=== PATIENT | female | born 1940 | race Caucasian/White ===

== ENCOUNTER → 2017-09-20 | Outpatient (CLI) | payer MEDICARE ==
--- NOTE | 2017-09-20 15:19 | MM ---
Reason for exam: screening (asymptomatic). Last mammogram was performed 2 years and 5 months ago. History: Patient is postmenopausal. Benign core biopsy of the left breast. Took estrogen for 8 years beginning at age 52. Took progesterone for 8 years beginning at age 52. Physical Findings: A clinical breast exam by your physician is recommended on an annual basis and results should be correlated with mammographic findings. MG Screening Mammo w CAD Bilateral CC and MLO view(s) were taken. Prior study comparison: May 05, 2015, bilateral MG screening mammo w CAD. April 01, 2014, bilateral MG screening mammo w CAD. The breast tissue is heterogeneously dense. This may lower the sensitivity of mammography. There is no discrete abnormality. No significant changes when compared with prior studies. ASSESSMENT: Negative, BI-RAD 1 RECOMMENDATION: Routine screening mammogram of both breasts in 1 year.
== END | disposition home or self-care (01) ==
LOC: RADMAMWWP 09:19
PROVIDERS: ATTEND Internal Medicine
DX: Z12.31 Encounter for screening mammogram for malignant neoplasm of breast (principal)
CPT/HCPCS: 77067

== ENCOUNTER → 2020-04-06 | Outpatient (CLI) | payer MEDICARE ==
--- NOTE | 2020-04-06 12:02 | MM ---
Reason for exam: clinical finding. Last mammogram was performed 2 years and 6 months ago. History: Patient is postmenopausal. Benign core biopsy of the left breast. Took estrogen for 8 years beginning at age 52. Took progesterone for 8 years beginning at age 52. Indicated problem(s): non-bloody discharge in both breasts. Physical Findings: Nurse did not find any significant physical abnormalities on exam. MG 3D Diag Mammo W/Cad ROMA Bilateral CC and MLO view(s) were taken. Prior study comparison: September 20, 2017, bilateral MG screening mammo w CAD. May 05, 2015, bilateral MG screening mammo w CAD. The breast tissue is heterogeneously dense. This may lower the sensitivity of mammography. There is chronic nodularity bilaterally. There is no dominant lesion. These results were verbally communicated with the patient and result sheet given to the patient on 04/06/20. ASSESSMENT: Benign, BI-RAD 2 RECOMMENDATION: Routine screening mammogram of both breasts in 1 year. Manage on a clinical basis with regard to pain bilaterally, bilateral discharge.
== END | disposition home or self-care (01) ==
LOC: RADMAMWWP 10:55
PROVIDERS: ATTEND Internal Medicine
DX: N64.52 Nipple discharge (principal); R92.8 Other abnormal and inconclusive findings on diagnostic imaging of breast
CPT/HCPCS: 77066; G0279; 77062

== ENCOUNTER → 2021-08-17 | Outpatient (CLI) | payer MEDICARE ==
--- NOTE | 2021-08-18 11:29 | MM ---
Reason for exam: screening (asymptomatic). Last mammogram was performed 1 year and 4 months ago. History: Patient is postmenopausal and history of other cancer. Benign core biopsy of the left breast. Took estrogen for 8 years beginning at age 52. Took progesterone for 8 years beginning at age 52. Physical Findings: A clinical breast exam by your physician is recommended on an annual basis and results should be correlated with mammographic findings. MG 3D Screening Mammo W/Cad Bilateral CC and MLO view(s) were taken. Prior study comparison: April 06, 2020, bilateral MG 3d diag mammo w/cad ROMA. September 20, 2017, bilateral MG screening mammo w CAD. The breast tissue is heterogeneously dense. This may lower the sensitivity of mammography. Stable benign calcifications. There is no discrete abnormality. ASSESSMENT: Benign, BI-RAD 2 RECOMMENDATION: Routine screening mammogram of both breasts in 1 year.
== END | disposition home or self-care (01) ==
LOC: RADMAMWWP 14:38
PROVIDERS: ATTEND Internal Medicine
DX: Z12.31 Encounter for screening mammogram for malignant neoplasm of breast (principal); Z78.0 Asymptomatic menopausal state
CPT/HCPCS: 77063; 77067

== ENCOUNTER 2024-02-01 09:37 | Emergency (ER) | payer MEDICARE ==
[2024-02-01 09:56] VITALS: RESP 18; TEMP 97.6
--- NOTE | 2024-02-01 10:07 | ED ---
General Adult HPI - General Source: patient, RN notes reviewed Mode of arrival: ambulatory Limitations: no limitations <Carlos Grajeda - Last Filed: 02/01/24 09:55> <Barrie Diaz - Last Filed: 02/01/24 14:25> - General Stated complaint: Vomiting Time Seen by Provider: 02/01/24 10:00 - History of Present Illness Initial comments: Quick note 83-year-old female presents emergency department chief complaint dizziness. Patient states she has had a history of vertigo but this is much worse she has had this for last few days she states she is very nauseated dizziness is worse with movement. No focal weakness. (Carlos Grajeda) This is a 83-year-old female who presents to the emergency department with a complaint of dizziness. Patient states that started Monday has been ongoing since. Patient states she has had a history of this before many years ago. Patient states any movement of the head makes it worse. Patient states she is also very nauseous and has vomited. Patient denies any headache patient denies any numbness or weakness. Patient denies any chest pain difficulty breathing shortness of breath. Patient denies abdominal pain. Patient always has diarrhea she states. Patient denies any back pain. (Barrie Diaz) - Related Data Previous Rx's Medication Instructions Recorded Meclizine [Antivert] 25 mg PO TID #20 tab 02/01/24 Allergies Allergy/AdvReac Type Severity Reaction Status Date / Time aspirin Allergy Unknown Verified 02/01/24 09:51 codeine Allergy Unknown Verified 02/01/24 09:51 ketamine Allergy Unknown Verified 02/01/24 09:51 pentazocine [From [facility]] Allergy Unknown Verified 02/01/24 09:51 Review of Systems ROS Other: All systems not noted in ROS Statement are negative. <Carlos Grajeda - Last Filed: 02/01/24 09:55> ROS Other: All systems not noted in ROS Statement are negative. <Barrie Diaz - Last Filed: 02/01/24 14:25> ROS Statement: Those systems with pertinent positive or pertinent negative responses have been documented in the HPI. General Exam <Carlos Grajeda - Last Filed: 02/01/24 09:55> <Barrie Diaz - Last Filed: 02/01/24 14:25> - General Exam Comments Initial Comments: Visual Physical Exam Vital signs reviewed General: Well-appearing, nontoxic, no acute distress. Head: Normocephalic, atraumatic Eyes: PERRLA, EOMI ENT: Airway patent Chest: Nonlabored breathing Skin: No visual rash, normal skin tone Neuro: Alert and oriented 3 Musculoskeletal: No gross abnormalities (Carlos Grajeda) GENERAL: Patient is well-developed and well-nourished. Patient is nontoxic and well- hydrated and is in mild distress. ENT: Neck is soft and supple. No significant lymphadenopathy is noted. Oropharynx is clear. Moist mucous membranes. Neck has full range of motion without eliciting any pain. EYES: The sclera were anicteric and conjunctiva were pink and moist. Extraocular movements were intact and pupils were equal round and reactive to light. Eyelids were unremarkable. PULMONARY: Unlabored respirations. Good breath sounds bilaterally. No audible rales rhonchi or wheezing was noted. CARDIOVASCULAR: There is a regular rate and rhythm without any murmurs gallops or rubs. ABDOMEN: Soft and nontender with normal bowel sounds. SKIN: Skin is clear with no lesions or rashes and otherwise unremarkable. NEUROLOGIC: Patient is alert and oriented x3. Cranial nerves II through XII are grossly intact. Motor and sensory are also intact. Normal speech, volume and content. Symmetrical smile. Finger-nose testing is normal bilaterally MUSCULOSKELETAL: Normal extremities with adequate strength and full range of motion. No lower extremity swelling or edema. No calf tenderness. LYMPHATICS: No significant lymphadenopathy is noted PSYCHIATRIC: Normal psychiatric evaluation. (Barrie Diaz) Course Vital Signs 02/01/24 02/01/24 09:51 13:00 Temperature 97.6 F Pulse Rate 67 60 Respiratory 18 18 Rate Blood Pressure 140/79 135/68 O2 Sat by Pulse 97 96 Oximetry Medical Decision Making <Carlos Grajeda - Last Filed: 02/01/24 09:55> - Lab Data Result diagrams: 02/01/24 10:54 02/01/24 10:54 <Barrie Diaz - Last Filed: 02/01/24 14:25> - Medical Decision Making I completed the quick note portion of this chart signed Carlos Grajeda PA-C (Carlos Grajeda) EKG is interpreted by myself but EKG shows a sinus rhythm at 62 bpm HI 179 QRS is 108 QT interval is 435 QTc is 441 patient's EKG shows no ST segment elevation or depression. Was pt. sent in by a medical professional or institution (STEPHANIE Rizvi, ASSISTANT COUNSEL, urgent care, hospital, or fpc...) When possible be specific @ -No Did you speak to anyone other than the patient for history (EMS, parent, family, police, friend...)? What history was obtained from this source @ -No Did you review nursing and triage notes (agree or disagree)? Why? @ -I reviewed and agree with nursing and triage notes Were old charts reviewed (outside hosp., previous admission, EMS record, old EKG, old radiological studies, urgent care reports/EKG's, fpc records)? Report findings @ -No old charts were reviewed Differential Diagnosis? @ -Differential Dizziness: Benign paroxysmal positional Vertigo, Meniere's disease, otitis media, acoustic neuroma, vertebrobasilar insufficiency, cerebellar stroke, encephalitis, hypovolemic, arrhythmia, coronary artery syndrome, anemia, this is not meant to be an all-inclusive list EKG interpreted by me (3pts min.). @ -As above X-rays interpreted by me (1pt min.). @ -Chest x-ray shows no acute traumatic CT interpreted by me (1pt min.). @ -CT of the brain shows no acute normality U/S interpreted by me (1pt. min.). @ -None done What testing was considered but not performed or refused? (CT, X-rays, U/S, labs)? Why? @ -None What meds were considered but not given or refused? Why? @ -None Did you discuss the management of the patient with other professionals (professionals i.e. STEPHANIE Rizvi, ASSISTANT COUNSEL, lab, RT, psych nurse, psychosocial rehabilitation counselor, logistics manager, teacher, supervisor dog license officer, upper caser)? Give summary @ -No Was smoking cessation discussed for >3mins.? @ -No Was critical care preformed (if so, how long)? @ -No Were there social determinants of health that impacted care today? How? (Homelessness, low income, unemployed, alcoholism, drug addiction, transpo rtation, low edu. Level, literacy, decrease access to med. care, nursing home, rehab)? @ -No Was there de-escalation of care discussed even if they declined (Discuss DNR or withdrawal of care, Hospice)? DNR status @ -No What co-morbidities impacted this encounter? (DM, HTN, Smoking, COPD, CAD, Cancer, CVA, ARF, Chemo, Hep., AIDS, mental health diagnosis, sleep apnea, morbid obesity)? @ -None Was patient admitted / discharged? Hospital course, mention meds given and route, prescriptions, significant lab abnormalities, going to OR and other pertinent info. @ -Patient was given Antivert Valium and Reglan in the emergency department also given a bolus of fluids and was feeling better and able to ambulate without falling over or vomiting. Patient does want to be discharged home Undiagnosed new problem with uncertain prognosis? @ -No Drug Therapy requiring intensive monitoring for toxicity (Heparin, Nitro, Insulin, Cardizem)? @ -No Were any procedures done? @ -No Diagnosis/symptom? @ -Vertigo Acute, or Chronic, or Acute on Chronic? @ -Acute Uncomplicated (without systemic symptoms) or Complicated (systemic symptoms)? @ -Complicated Side effects of treatment? @ -No Exacerbation, Progression, or Severe Exacerbation? @ -No Poses a threat to life or bodily function? How? (Chest pain, USA, AR, pneumonia, PE, COPD, DKA, ARF, appy, cholecystitis, CVA, Diverticulitis, Homicidal, Suicidal, threat to staff... and all critical care pts) @ -No (Barrie Diaz) - Lab Data Lab Results 02/01/24 02/01/24 02/01/24 Range/Units 10:54 10:54 10:54 WBC 6.7 (3.8-10.6) k/uL RBC 4.27 (3.80-5.40) m/uL Hgb 15.6 (11.4-16.0) gm/dL Hct 44.8 (34.0-46.0) % MCV 105.0 H (80.0-100.0) fL MCH 36.5 H (25.0-35.0) pg MCHC 34.8 (31.0-37.0) g/dL RDW 14.1 (11.5-15.5) % Plt Count 210 (150-450) k/uL MPV 8.2 Neutrophils % 71 % Lymphocytes % 23 % Monocytes % 4 % Eosinophils % 1 % Basophils % 1 % Neutrophils # 4.7 (1.3-7.7) k/uL Lymphocytes # 1.5 (1.0-4.8) k/uL Monocytes # 0.2 (0-1.0) k/uL Eosinophils # 0.1 (0-0.7) k/uL Basophils # 0.1 (0-0.2) k/uL Macrocytosis Moderate PT 10.7 (10.0-12.5) sec INR 1.0 (<1.2) APTT 23.2 (22.0-30.0) sec Sodium 140 (137-145) mmol/L Potassium 3.9 (3.5-5.1) mmol/L Chloride 109 H (98-107) mmol/L Carbon Dioxide 20 L (22-30) mmol/L Anion Gap 11 mmol/L BUN 16 (7-17) mg/dL Creatinine 0.60 (0.52-1.04) mg/dL Est GFR (CKD-EPI)AfAm >90 (>60 ml/min/1.73 sqM) Est GFR (CKD-EPI)NonAf 85 (>60 ml/min/1.73 sqM) Glucose 168 H (74-99) mg/dL Calcium 9.9 (8.4-10.2) mg/dL Magnesium 2.0 (1.6-2.3) mg/dL Total Bilirubin 0.9 (0.2-1.3) mg/dL AST 62 H (14-36) U/L ALT 57 H (4-34) U/L Alkaline Phosphatase 56 (38-126) U/L Troponin I (0.000-0.034) ng/mL Total Protein 6.9 (6.3-8.2) g/dL Albumin 4.7 (3.5-5.0) g/dL 02/01/24 Range/Units 10:54 WBC (3.8-10.6) k/uL RBC (3.80-5.40) m/uL Hgb (11.4-16.0) gm/dL Hct (34.0-46.0) % MCV (80.0-100.0) fL MCH (25.0-35.0) pg MCHC (31.0-37.0) g/dL RDW (11.5-15.5) % Plt Count (150-450) k/uL MPV Neutrophils % % Lymphocytes % % Monocytes % % Eosinophils % % Basophils % % Neutrophils # (1.3-7.7) k/uL Lymphocytes # (1.0-4.8) k/uL Monocytes # (0-1.0) k/uL Eosinophils # (0-0.7) k/uL Basophils # (0-0.2) k/uL Macrocytosis PT (10.0-12.5) sec INR (<1.2) APTT (22.0-30.0) sec Sodium (137-145) mmol/L Potassium (3.5-5.1) mmol/L Chloride (98-107) mmol/L Carbon Dioxide (22-30) mmol/L Anion Gap mmol/L BUN (7-17) mg/dL Creatinine (0.52-1.04) mg/dL Est GFR (CKD-EPI)AfAm (>60 ml/min/1.73 sqM) Est GFR (CKD-EPI)NonAf (>60 ml/min/1.73 sqM) Glucose (74-99) mg/dL Calcium (8.4-10.2) mg/dL Magnesium (1.6-2.3) mg/dL Total Bilirubin (0.2-1.3) mg/dL AST (14-36) U/L ALT (4-34) U/L Alkaline Phosphatase (38-126) U/L Troponin I <0.012 (0.000-0.034) ng/mL Total Protein (6.3-8.2) g/dL Albumin (3.5-5.0) g/dL Disposition <Carlos Grajeda - Last Filed: 02/01/24 09:55> Is patient prescribed a controlled substance at d/c from ED?: No Time of Disposition: 14:24 <Barrie Diaz - Last Filed: 02/01/24 14:25> Clinical Impression: Vertigo Disposition: HOME SELF-CARE Condition: Good Instructions (If sedation given, give patient instructions): Vertigo (ED) Prescriptions: Meclizine [Antivert] 25 mg PO TID #20 tab Referrals: Joanna Mi MD [Primary Care Provider] - 1-2 days
[2024-02-01] MEDS: SODIUM CHLORIDE 0.9% 500 ML 500 ML IV STA (11:09)
[2024-02-01 11:10] LABS: Basophils # (A) 0.1 k/uL (0-0.2); Basophils % (A) 1 %; Eosinophils # (A) 0.1 k/uL (0-0.7); Eosinophils % (A) 1 %; HCT 44.8 % (34.0-46.0); HGB 15.6 gm/dL (11.4-16.0); Lymphocytes # (A) 1.5 k/uL (1.0-4.8); Lymphocytes % (A) 23 %; MCH 36.5 pg (25.0-35.0); MCHC 34.8 g/dL (31.0-37.0); Macrocytosis Moderate; Mean Platelet Volume 8.2; Monocytes # (A) 0.2 k/uL (0-1.0); Monocytes % (A) 4 %; Neutrophils # (A) 4.7 k/uL (1.3-7.7); Neutrophils % (A) 71 %; Platelet Count 210 k/uL (150-450); RBC 4.27 m/uL (3.80-5.40); RDW 14.1 % (11.5-15.5); WBC 6.7 k/uL (3.8-10.6)
[2024-02-01] MEDS: METOCLOPRAMIDE 5 MG/ML 2 ML VIAL IVP STA (11:10)
[2024-02-01] MEDS: MECLIZINE 25 MG TAB PO STA (11:11)
[2024-02-01 11:20] LABS: Partial Thromboplastin Time 23.2 sec (22.0-30.0); Prothrombin Time 10.7 sec (10.0-12.5)
[2024-02-01 11:23] LABS: ALT 57 U/L (4-34); AST 62 U/L (14-36); African American GFR (CKD) >90 (>60 ml/min/1.73 sqM); Albumin 4.7 g/dL (3.5-5.0); Alkaline Phosphatase 56 U/L (38-126); Anion Gap 11 mmol/L; Blood Urea Nitrogen 16 mg/dL (7-17); Calcium 9.9 mg/dL (8.4-10.2); Carbon Dioxide 20 mmol/L (22-30); Chloride 109 mmol/L (98-107); Glucose 168 mg/dL (74-99); Non-African American GFR(CKD) 85 (>60 ml/min/1.73 sqM); Potassium 3.9 mmol/L (3.5-5.1); Sodium 140 mmol/L (137-145); Total Bilirubin 0.9 mg/dL (0.2-1.3); Total Protein 6.9 g/dL (6.3-8.2)
--- NOTE | 2024-02-01 11:42 | CT ---
EXAMINATION TYPE: CT brain wo con DATE OF EXAM: 02/01/2024 COMPARISON: None HISTORY: dizziness, vertigo and weakness. CT DLP: 1131.4 mGycm Automated exposure control for dose reduction was used. Findings: The ventricles, basal cisterns and sulci over the convexities are within normal limits and there is n o mass effect or shift of midline structures. No abnormal density is seen throughout the brain parenchyma and there is no acute intra or extra-axia l hemorrhage. The posterior fossa including the brainstem, fourth ventricle and cerebellar pontine angles appear no rmal. Intraorbital contents appear normal and symmetric. Visualized paranasal sinuses and mastoid air cells are well aerated. The calvarium is intact. IMPRESSION: No significant abnormality seen. There is no acute bleed or mass effect. [facility], , 02/01/2024 11:40 AM
[2024-02-01 13:02] VITALS: BP 135/68; PULSE 60
--- NOTE | 2024-02-01 13:20 | XR ---
EXAMINATION TYPE: XR chest 2V DATE OF EXAM: 02/01/2024 11:58 AM COMPARISON: None TECHNIQUE: XR chest 2V Frontal and lateral views of the chest. CLINICAL INDICATION:Female, 83 years old with history of Chest Pain; FINDINGS: Lungs/Pleura: There is no evidence of pleural effusion, focal consolidation, or pneumothorax. Pulmonary vascularity: Unremarkable. Heart/mediastinum: Cardiomediastinal silhouette is unremarkable. Atherosclerotic calcifications are seen in the aorta. Musculoskeletal: Multiple level degenerative disc disease changes seen throughout the spine. IMPRESSION: No acute cardiopulmonary disease/process. [facility], , 02/01/2024 1:18 PM
== END 2024-02-01 14:39 | disposition home or self-care (01) ==
LOC: EC 09:37
CPT/HCPCS: 36415; 70450; 71046; 80053; 83735; 84484; 85025; 85610; 85730; 93005; 96361; 96374; 96375; 99285

== ENCOUNTER → 2024-05-08 | Outpatient (CLI) | payer MEDICARE ==
--- NOTE | 2024-05-08 18:02 | MR ---
EXAMINATION TYPE: MR brain wo con DATE OF EXAM: 05/08/2024 COMPARISON: CT brain February 01, 2024 HISTORY: Vertigo, Dizziness, 2 months ago had an episode of vertigo and vomited, TECHNIQUE: Multiplanar, multisequence imaging of the brain and brainstem is performed without IV cont rast. FINDINGS: Diffusion weighted images demonstrate no evidence of a recent infarct or other diffusion abnormality. There is mild ventricular and sulcal prominence redemonstrated. There are scattered and focal conflue nt areas of T2 intensity seen throughout the superficial, deep, and periventricular white matter bila terally. Approximately 50-60 distinct lesions are seen. Midline structures demonstrate normal morphology. The craniocervical junction appears within normal limits. Normal vascular flow voids are present. The visualized sinuses are clear. Bilateral aphakia i s redemonstrated. No suspicious opacification of the mastoid air cells bilaterally. IMPRESSION: There is mild diffuse age-related cerebral atrophy and moderate to borderline advanced pr obable chronic small vessel ischemic change. [facility], , 05/08/2024 6:00 PM
--- NOTE | 2024-05-08 18:32 | MR ---
EXAMINATION TYPE: MR angio head wo/neck wo/w con DATE OF EXAM: 05/08/2024 COMPARISON: Same day MRI of brain HISTORY: Vertigo, Dizziness, 2 months ago had an episode of vertigo and vomited TECHNIQUE: Time of flight images focusing on the [place] of [place] were performed without contrast.. 2-D and 3-D postprocessing imaging is performed. MRA of the neck without and with IV contrast. Patien t given 9.5 cc of gadolinium. FINDINGS: Vertebral arteries are contiguous and patent to the basilar junction. Left vertebral artery is larger caliber or dominant. Patent right posterior communicating artery. Patent anterior communic ating artery. No large vessel occlusion or aneurysm at the level of the [place] of [place]. There is normal three-vessel origin from aortic arch. There is no significant stenosis at the carotid bulb level bilaterally. There is no significant stenosis in visualized portion of the common or inte rnal carotid arteries bilaterally. Patent external carotid arteries are seen bilaterally. IMPRESSION: No significant stenosis at the carotid bifurcations. No large vessel occlusion or aneurys m at the level of the [place] of [place]. [facility], , 05/08/2024 6:27 PM
== END | disposition home or self-care (01) ==
LOC: RADMRIMAIN 16:35
PROVIDERS: ATTEND Psychiatry & Neurology Neurology
DX: I67.9 Cerebrovascular disease, unspecified (principal); G46.4 Cerebellar stroke syndrome; G31.1 Senile degeneration of brain, not elsewhere classified; I65.23 Occlusion and stenosis of bilateral carotid arteries
CPT/HCPCS: 70544; 70549; 70551; A9585

== ENCOUNTER → 2024-06-03 | Outpatient (CLI) | payer MEDICARE ==
[2024-06-03 13:21] LABS: INR 0.9 (<1.2); Partial Thromboplastin Time 22.4 sec (22.0-30.0); Prothrombin Time 10.6 sec (10.0-12.5)
[2024-06-03 19:00] LABS: Cardiolipin Ab IgG Interp Negative (Negative); Cardiolipin Ab IgM Interp Negative (Negative); Cardiolipin IgA Antibody 2.2 U/mL; Cardiolipin IgM Antibody 11.2 U/mL
[2024-06-03 19:32] LABS: Chol/HDL Ratio 4.83 Ratio; LDL Cholesterol,Calculated 95.7 mg/dL (0.0-131.0)
[2024-06-04 13:36] LABS: APTT 38 Sec(s) (<43); Dilute Russell Viper Venom 43 Sec(s) (<44)
== END | disposition home or self-care (01) ==
LOC: LABWHC1 11:11
PROVIDERS: ATTEND Psychiatry & Neurology Neurology
DX: I67.9 Cerebrovascular disease, unspecified (principal)
CPT/HCPCS: 36415; 80061; 82607; 82746; 83036; 83090; 85610; 85613; 85730; 86147